=== PATIENT | female | born 1965 | race Caucasian/White ===

== ENCOUNTER 2022-01-07 01:46 | Emergency (ER) | payer MEDICARE, OTHER ==
[2022-01-09 00:11] LABS: HIV AB/P24 AG SCREEN Non Reactive (Non Reactive)
[2022-01-09 19:08] LABS: CHLAMYDIA TRACHOMATIS, NAA Positive (Negative); NEISSERIA GONORRHOEAE, NAA Negative (Negative)
== END 2022-01-07 04:10 | disposition home or self-care (01) ==
LOC: ER1 01:46
PROVIDERS: Emergency Medicine
DX: T74.21XA Adult sexual abuse, confirmed, initial encounter (principal); S60.221A Contusion of right hand, initial encounter; X58.XXXA Exposure to other specified factors, initial encounter
CPT/HCPCS: 86780; 87210; 87389; 96372; 99285; J0696